=== PATIENT | female | born 1970 | race Caucasian/White ===

== ENCOUNTER 2021-09-28 11:02 | Outpatient (REF) | payer OTHER, SELFPAY ==
[2021-09-28 13:03] LABS: Blood Urea Nitrogen 15 mg/dL (9-16); Estimated Glomerular Filt Rate > 60
== END 2021-09-28 11:03 | disposition home or self-care (01) ==
LOC: HO.LAB 11:02
PROVIDERS: PCP Internal Medicine; Visit Provider Psychiatry & Neurology Neurology
DX: G45.0 Vertebro-basilar artery syndrome (principal)
CPT/HCPCS: 36415; 82565; 84520

== ENCOUNTER 2021-10-14 09:57 | Outpatient (REF) | payer OTHER, SELFPAY ==
--- NOTE | ~2021-10-14 | CT_ITS ---
CT ANGIOGRAM BRAIN, HEAD CLINICAL INFORMATION: VERTEBRO-BASILAR ARTERY SYNDROME COMPARISON: Brain MRI 04/18/[address] 02/23/2021. TECHNIQUE: Test bolus sequences followed by intravenous administration 100 mL of Omnipaque 350 intravenous contrast. Helical imaging was performed in the axial plane from the skull base to the vertex. Delayed postcontrast imaging of the head was also performed. The data was processed at the production control technologist workstation for generation of MIP sequences. Three-dimensional volume rendered reformatted images were also generated at an offline 3-D workstation. The degree of stenosis determined by NASCET criteria. This CT examination was performed using dose optimization techniques as appropriate, variously including the following: *Automated exposure control *Adjustment of mA and/or kV according to patient size (this includes techniques or standardized protocols for targeted exams where dose is matched to indication/reason for exam; i.e. extremities or head) *Use of iterative reconstruction technique FINDINGS: There is no hemorrhage, hydrocephalus, extra-axial surface collection, midline shift, or other herniation pattern. Perivascular space within the inferior left putamen incidentally noted. [place] to white matter differentiation is diffusely maintained without evidence of an evolved acute territorial infarct. The basilar cisterns are preserved. No significant soft tissue abnormality. No acute osseous abnormality. The paranasal sinuses and the mastoid air cells are well aerated. Anterior and posterior intracranial arterial circulations are normal in caliber. No significant arterial stenoses and no acute arterial occlusions. No aneurysms and no high flow vascular malformations. CT/CT angio head IMPRESSION: Unremarkable CTA of the head. Vertebrobasilar system is widely patent.
[2021-10-14] MEDS: iohexoL 350 MG/ML 100 ML INFUS..BTL IV (11:12)
== END 2021-10-14 09:58 | disposition home or self-care (01) ==
LOC: HO.CT 09:57
PROVIDERS: PCP Internal Medicine; Visit Provider Psychiatry & Neurology Neurology
DX: G45.0 Vertebro-basilar artery syndrome (principal)
CPT/HCPCS: 70496; Q9967